=== PATIENT | male | born 2000 | race Caucasian/White ===

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

== ENCOUNTER 2023-05-06 15:47 | Emergency (ER) | payer OTHER ==
[~2023-05-06] VITALS: Ht 182.9 cm; Wt 126.1 kg
[2023-05-06 17:31] VITALS: BP 128/89; PULSE 93; RESP 20; TEMP 97.8; O2SAT 99
[2023-05-06] MEDS ORDERED: PSEU-250 PO (18:01)
[2023-05-06] MEDS ORDERED: IBUP-2213 PO (18:01)
[2023-05-06] MEDS ORDERED: BPM/-9 PO (18:01)
[2023-05-06 18:49] LABS: FLU A ANTIGEN negative (NEGATIVE); FLU B ANTIGEN negative (NEGATIVE)
== END 2023-05-06 18:08 | disposition home or self-care (01) ==
LOC: MED 15:47
DX: J06.9 Acute upper respiratory infection, unspecified (principal); Z20.822 Contact with and (suspected) exposure to COVID-19; I25.10 Atherosclerotic heart disease of native coronary artery without angina pectoris; Z79.899 Other long term (current) drug therapy
CPT/HCPCS: 99283